=== PATIENT | male | born 2000 | race Caucasian/White ===

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

== ENCOUNTER 2021-02-26 08:12 | Inpatient (IN) | payer BC, OTHER ==
[~2021-02-26] VITALS: Ht 180.3 cm; Wt 84.5 kg
[~2021-02-26 08:12] MED LIST changes: -DOXY100C PO; +DOXY100C3 PO
[2021-02-26 08:36] LABS: BASO # 0.1 10^3/uL (0.0-0.2); BASO % 0.4 % (0.0-1.0); EOS # 0.3 10^3/uL (0.0-0.5); EOS % 1.7 % (0.0-3.0); HEMATOCRIT 45.9 % (42.0-52.0); HEMOGLOBIN 15.4 g/dl (13.5-17.5); LYMPH # 0.7 10^3/uL (1.5-5.0); LYMPH % 3.7 % (24.0-44.0); MEAN CORPUSCULAR HGB CONC 33.6 g/dl (32.0-36.5); MEAN CORPUSCULAR VOLUME 89.5 fl (80.0-96.0); MONO # 0.9 10^3/uL (0.0-0.8); MONO % 4.7 % (2.0-8.0); NEUTROPHILS # 16.7 10^3/uL (1.5-8.5); PLATELET COUNT, AUTOMATED 411 10^3/uL (150-450); RED BLOOD COUNT 5.13 10^6/uL (4.30-6.10); WHITE BLOOD COUNT 18.7 10^3/uL (4.0-10.0)
[2021-02-26 09:05] LABS: ALT/SGPT 32 U/L (12-78); BILIRUBIN,DIRECT 0.2 MG/DL (0.0-0.2); BILIRUBIN,TOTAL 0.6 MG/DL (0.2-1.0); BLOOD UREA NITROGEN 16 MG/DL (7-18); CALCIUM LEVEL 8.8 MG/DL (8.5-10.1); CARBON DIOXIDE LEVEL 25 MEQ/L (21-32); CHLORIDE LEVEL 110 MEQ/L (98-107); CREATININE FOR GFR 0.74 MG/DL (0.70-1.30); GLOMERULAR FILTRATION RATE > 60.0 (>60); GLUCOSE, FASTING 116 MG/DL (70-100); LIPASE 604 U/L (73-393); POTASSIUM SERUM 4.2 MEQ/L (3.5-5.1); SODIUM LEVEL 142 MEQ/L (136-145); TOTAL PROTEIN 7.1 GM/DL (6.4-8.2)
[2021-02-26] MEDS ORDERED: ONDANSETRON 4MG/2ML VIAL IV ONE (09:40)
[2021-02-26] MEDS ORDERED: NS 1,000 ML IV ONE (09:40)
[2021-02-26] MEDS ORDERED: ISOVUE-370 76% 100ML VIAL As Ordered ONE (09:46)
--- NOTE | 2021-02-26 10:14 | REP ---
INDICATION: vomiting diarrhea left sided pain. COMPARISON: Abdomen/pelvis CT dated 08/29/2013. TECHNIQUE: Abdomen/pelvis CT with IV contrast, without bowel contrast. FINDINGS: The visualized lung acevedo are unremarkable. The hepatic parenchyma, gallbladder, pancreas and spleen are normal size and unremarkable. The adrenals and kidneys are unremarkable. The abdominal aorta is unremarkable. There is no periaortic adenopathy or mass. The small bowel is mildly dilated and fluid-filled. There is wall thickening of a proximal small bowel loops. This may represent a enteritis. There is wall thickening of the transverse colon and descending colon, nonspecific. This could represent artifact from peristalsis or infectious versus inflammatory colitis. There is no ascites. No pneumoperitoneum. Pelvis: There is no pelvic ascites or adenopathy. The bladder is incompletely distended but otherwise unremarkable. IMPRESSION: The small bowel is mildly distended and fluid-filled. Proximal small bowel loops demonstrate wall thickening. This may represent enteritis. There is wall thickening of the transverse colon and descending colon, nonspecific, peristalsis versus inflammatory or infectious colitis. No ascites or adenopathy. No pneumoperitoneum. <Electronically signed by Jeremiah Roland > 02/26/21 1011
[2021-02-26] MEDS ORDERED: NS 1,000 ML IV SCH (13:15)
[2021-02-26] MEDS ORDERED: ACETAMINOPHEN TAB 650MG DOSE (2X325MG) PO PRN (14:10)
[2021-02-26] MEDS ORDERED: HOME MED LIST COMPLETE! XX SCH (14:15)
[2021-02-26 14:39] LABS: RSV AMPLIFICATION NEGATIVE (NEGATIVE)
[2021-02-26] MEDS ORDERED: ONDANSETRON 4MG/2ML VIAL IV PRN (15:00)
--- NOTE | 2021-02-26 15:21 | HPEPDOC ---
General Date of Admission Feb 26, 2021 at 08:13 Date of Service: Feb 26, 2021 Chief Complaint The patient is a 21-year-old male admitted with a reason for visit of Cdiff, N/V/D, Norovirus. 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 Yesterday he was in good health. Denies any recent travel, any sick contacts, or any recent hospitalizations. He denies eating anything different. He did take amoxicillin about 1 to 2 weeks ago or upper respiratory symptoms. 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 In a span of 2 hours, he had 4 to 5 episodes of vomiting. He also had 3 episodes of watery diarrhea. He was not able to keep food down, and he came to the ED for evaluation. GI panel returned positive for C.diff, enteropathogenic E.coli, and norovirus. Otherwise, vital signs were stable. Patient did not have fever or tachycardia. On examination, patient was not in any distress. Denied a ny abdominal pain. Denied any fever, dyspnea, chest pain, or dysuria. Otherwise, patient had elevated lipase of 604 which is less than 3x the upper limit of normal. There is not radiological evidence of acute pancreatitis and no abdominal pain or tenderness. He does not have acute pancreatitis, but will monitor for symptoms while here. Patient will be placed in observation for C.diff and enteropathic E.coil diarrhea. Home Medications No Active Prescriptions or Reported Meds Allergies Coded Allergies: No Known Allergies (Unverified , 02/25/17) Past Medical History Medical History 1. Asthma 2. Allergic rhinitis Surgical History 1. Pernial bridge 2014 Family History Father: Alive with high blood pressure and hyperlipidemia Mother: Alive with fibromyalgia and hypertension Social History * Smoker: current smoker Alcohol: occationally Drugs: marijuana A-FIB/CHADSVASC A-FIB History Current/History of A-Fib/PAF?: No Review of Systems Constitutional: Denies: Chills, Fever Eyes: Denies: Vision change ENT: Reports: Sore Throat (from vomiting) Skin: Reports: Rash (From poison karen. Located on hands, forearms, gluteals, and inner thighs) Pulmonary: Denies: Dyspnea, Cough Cardiovascular: Denies: Chest Pain Gastrointestinal: Reports: Nausea, Vomiting, Diarrhea; Denies: Abdominal Pain Genitourinary: Denies: Dysuria Hematologic: Denies: Bruising Neurological: Denies: Numbness Psych: Denies: Anxiety, Depression Physical Examination General Exam: Positive: Alert, Cooperative Eye Exam: Positive: EOMI; Negative: Sclera icteric ENT Exam: Positive: Atraumatic Neck Exam: Positive: Supple Chest Exam: Positive: Clear to auscultation; Negative: Rales, Rhonchi, Wheezing Heart Exam: Positive: Rate Normal, Regular Rhythm Abdomen Exam: Positive: Normal bowel sounds, Soft; Negative: Tenderness Extremity Exam: Negative: Edema Neuro Exam: Positive: Normal Speech, Cranial Nerves 3-12 NL Psych Exam: Positive: Mental status NL, Mood NL Vital Signs Vital Signs Date Time Temp Pulse Resp B/P (MAP) Pulse Ox O2 Delivery O2 Flow Rate FiO2 02/26/21 08:21 96.7 68 18 134/60 (84) 98 Room Air Laboratory Data Labs 24H Laboratory Tests 2 02/26/21 08:25: Immature Granulocyte % (Auto) 0.5, Neutrophils (%) (Auto) 89.0H, Lymphocytes (%) (Auto) 3.7L, Monocytes (%) (Auto) 4.7, Eosinophils (%) (Auto) 1.7, Basophils (%) (Auto) 0.4, Neutrophils # (Auto) 16.7H, Lymphocytes # (Auto) 0.7L, Monocytes # (Auto) 0.9H, Eosinophils # (Auto) 0.3, Basophils # (Auto) 0.1, Nucleated Red Blood Cells % (auto) 0.0, Anion Gap 7L, Glomerular Filtration Rate > 60.0, Calcium Level 8.8, Total Bilirubin 0.6, Direct Bilirubin 0.2, Aspartate Amino Transf (AST/SGOT) 19, Alanine Aminotransferase (ALT/SGPT) 32, Alkaline Phosphatase 46, Total Protein 7.1, Albumin 4.0, Albumin/Globulin Ratio 1.3, Lipase 604H 02/26/21 13:39: Coronavirus (COVID-19)(PCR) NEGATIVE, Influenza Type A (RT-PCR) NEGATIVE, Influenza Type B (RT-PCR) NEGATIVE, Respiratory Syncytial Virus (PCR) NEGATIVE CBC/BMP Laboratory Tests 02/26/21 08:25 Microbiology Microbiology 02/26/21 Gastrointestinal Tract Panel (PCR) - Final, Complete Clostridium Difficile A/B Enteropathogenic E.coli Norovirus Assessment/Plan 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 This is due to C.diff, enteropathic E.coli, and norovirus. Will keep patient on clear liquid diet and add Protonix and PRN Zofran. Otherwise, will treat enteropathic E.coli with 3 days of azithromycin and treat C.diff with PO vancomycin. Patient will be put on IVF and monitor lipase. Plan / VTE VTE Prophylaxis Ordered?: Yes Plan Plan 1. C.diff diarrhea -Most likely triggered from amoxicillin usage -Contact isolation -PO vancomycin for 10 days -IVF and supportive care 2. Enteropathic E.coli diarrhea -Azithromycin for 3 days 3. Norovirus N/V/D -Most likely causing nausea/vomiting/diarrhea -Supportive care and IVF 4. Elevated lipase -No abdominal pain, no signs of acute pancreatitis on imaging -Lipase is not 3x upper limit of normal -Will give IVF and recheck lipase 5. DVT ppx -Lovenox Disposition: Pending tolerance of solid food and improvement in diarrhea. ESTEVAN STORM DO Feb 26, 2021 15:21
[2021-02-26] MEDS: AZITHROMYCIN INJ 500 MG, VIAL MATE ADAPTER 1 EACH in NS 250 ML IV SCH (16:43)
[2021-02-26] MEDS: NS 1,000 ML IV SCH (16:43)
[2021-02-26 17:32] VITALS: BP 124/62
[2021-02-26] MEDS: NICOTINE 21MG/24HR 1 EA TRANSDERMAL TD SCH (17:40)
[2021-02-26] MEDS: VANCOMYCIN ORAL SOL 250MG/5ML ORAL SYRINGE PO SCH (18:00)
[2021-02-26] MEDS ORDERED: PANTOPRAZOLE 40MG TAB (PROTONIX) PO SCH (21:00)
[2021-02-26 22:00] VITALS: BP 123/74
[2021-02-27] MEDS: VANCOMYCIN ORAL SOL 250MG/5ML ORAL SYRINGE PO SCH ×4 (00:06→18:29)
[2021-02-27] MEDS: NS 1,000 ML IV SCH ×3 (01:25→16:32)
[2021-02-27 06:00] VITALS: BP 108/70
[2021-02-27 06:16] LABS: HEMATOCRIT 39.1 % (42.0-52.0); MEAN CORPUSCULAR HGB CONC 33.2 g/dl (32.0-36.5); MEAN CORPUSCULAR VOLUME 90.3 fl (80.0-96.0); RED BLOOD COUNT 4.33 10^6/uL (4.30-6.10); WHITE BLOOD COUNT 7.6 10^3/uL (4.0-10.0)
[2021-02-27 06:17] LABS: PLATELET COUNT, AUTOMATED 287 10^3/uL (150-450)
[2021-02-27 06:33] LABS: BLOOD UREA NITROGEN 9 MG/DL (7-18); C REACTIVE PROTEIN QUANTITATIV 4.18 MG/DL (0.00-0.30); CALCIUM LEVEL 7.6 MG/DL (8.5-10.1); CARBON DIOXIDE LEVEL 27 MEQ/L (21-32); CHLORIDE LEVEL 110 MEQ/L (98-107); CREATININE FOR GFR 0.83 MG/DL (0.70-1.30); GLOMERULAR FILTRATION RATE > 60.0 (>60); GLUCOSE, FASTING 99 MG/DL (70-100); POTASSIUM SERUM 3.7 MEQ/L (3.5-5.1); SODIUM LEVEL 140 MEQ/L (136-145)
[2021-02-27 06:39] LABS: ERYTHROCYTE SEDIMENTATION RATE 4 mm/hr (0-15)
[2021-02-27 07:26] LABS: LIPASE 103 U/L (73-393)
[2021-02-27] MEDS: NICOTINE 21MG/24HR 1 EA TRANSDERMAL TD SCH (08:57)
[2021-02-27] MEDS: ENOXAPARIN 40MG/0.4ML SYRINGE (J1650 PER 10MG) SC SCH (09:00)
--- NOTE | 2021-02-27 13:31 | IPNPDOC ---
Subjective Date Seen The patient was seen on 02/27/21. 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 Yesterday, he continue to have 3 more liquid diarrhea. This morning, he was feeling okay. Denies chest pain or dyspnea. He was able to tolerate his clear liquid diet. Will advance to solid diet. 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 This is due to C.diff, enteropathic E.coli, and norovirus. Will advance diet form clear liquids to solids. Otherwise, will treat enteropathic E.coli with 3 days of azithromycin and treat C.diff with PO vancomycin. Plan/VTE VTE Prophylaxis Ordered?: Yes Plan 1. C.diff diarrhea -Most likely triggered from amoxicillin usage -Contact isolation -PO vancomycin for 10 days -Vancomycin day 2 -IVF and supportive care 2. Enteropathic E.coli diarrhea -Azithromycin for 3 days -Azithromycin day 2 3. Norovirus N/V/D -Most likely causing nausea/vomiting -Supportive care and IVF 4. Elevated lipase -No abdominal pain, no signs of acute pancreatitis on imaging -Lipase is not 3x upper limit of normal -Will give IVF and recheck lipase -Resolved 5. DVT ppx -Lovenox Disposition: Pending tolerance of solid food and improvement in diarrhea. VS, I&O, 24H, Fishbone Vital Signs/I&O Vital Signs Date Time Temp Pulse Resp B/P (MAP) Pulse Ox O2 Delivery O2 Flow Rate FiO2 02/27/21 06:00 97.2 97 24 108/70 (83) 98 Room Air I&O- Last 24 Hours up to 6 AM 02/27/21 05:59 Intake Total 2690 ml Balance 2690 ml Laboratory Data 24H LABS Laboratory Tests 2 02/26/21 13:39: Coronavirus (COVID-19)(PCR) NEGATIVE, Influenza Type A (RT-PCR) NEGATIVE, Influenza Type B (RT-PCR) NEGATIVE, Respiratory Syncytial Virus (PCR) NEGATIVE 02/27/21 05:49: Nucleated Red Blood Cells % (auto) 0.0, Erythrocyte Sedimentation Rate 4, Anion Gap 3L, Glomerular Filtration Rate > 60.0, Calcium Level 7.6L, C-Reactive Protein, Quantitative 4.18H, Lipase 103 CBC/BMP Laboratory Tests 02/27/21 05:49 Microbiology Microbiology 02/26/21 Gastrointestinal Tract Panel (PCR) - Final, Complete Clostridium Difficile A/B Enteropathogenic E.coli Norovirus ESTEVAN STORM DO Feb 27, 2021 13:31
[2021-02-27 14:00] VITALS: BP 106/90
[2021-02-27] MEDS: AZITHROMYCIN INJ 500 MG, VIAL MATE ADAPTER 1 EACH in NS 250 ML IV SCH (16:32)
[2021-02-27 22:00] VITALS: BP 150/82
[2021-02-28] MEDS: VANCOMYCIN ORAL SOL 250MG/5ML ORAL SYRINGE PO SCH ×2 (00:08→05:44)
[2021-02-28] MEDS: NS 1,000 ML IV SCH ×2 (04:19→08:45)
[2021-02-28 06:00] VITALS: BP 126/56
[2021-02-28 06:36] LABS: HEMATOCRIT 39.1 % (42.0-52.0); HEMOGLOBIN 12.7 g/dl (13.5-17.5); MEAN CORPUSCULAR HEMOGLOBIN 29.7 pg (27.0-33.0); MEAN CORPUSCULAR HGB CONC 32.5 g/dl (32.0-36.5); MEAN CORPUSCULAR VOLUME 91.4 fl (80.0-96.0); PLATELET COUNT, AUTOMATED 300 10^3/uL (150-450); RED BLOOD COUNT 4.28 10^6/uL (4.30-6.10); WHITE BLOOD COUNT 6.7 10^3/uL (4.0-10.0)
[2021-02-28 06:58] LABS: BLOOD UREA NITROGEN 7 MG/DL (7-18); C REACTIVE PROTEIN QUANTITATIV 2.18 MG/DL (0.00-0.30); CALCIUM LEVEL 8.6 MG/DL (8.5-10.1); CARBON DIOXIDE LEVEL 28 MEQ/L (21-32); CHLORIDE LEVEL 110 MEQ/L (98-107); CREATININE FOR GFR 0.72 MG/DL (0.70-1.30); GLOMERULAR FILTRATION RATE > 60.0 (>60); GLUCOSE, FASTING 86 MG/DL (70-100); SODIUM LEVEL 141 MEQ/L (136-145)
[2021-02-28 07:13] LABS: ERYTHROCYTE SEDIMENTATION RATE 5 mm/hr (0-15)
[2021-02-28] MEDS: NICOTINE 21MG/24HR 1 EA TRANSDERMAL TD SCH (09:00)
[2021-02-28] MEDS: ENOXAPARIN 40MG/0.4ML SYRINGE (J1650 PER 10MG) SC SCH (09:00)
[2021-02-28] MEDS ORDERED: VANC125C3 PO (09:24)
[2021-02-28] MEDS ORDERED: AZITHROMYCIN INJ 500 MG, VIAL MATE ADAPTER 1 EACH in NS 250 ML IV ONE (09:25)
--- NOTE | 2021-02-28 22:34 | DS.PDOC ---
Discharge Summary General Date of Admission Feb 26, 2021 Date of Discharge Feb 28, 2021 Discharge Summary PROCEDURES PERFORMED DURING STAY: None ADMITTING DIAGNOSES: 1. C. diff diarrhea 2. Enteropathic E.coli diarrhea 3. Norovirus infection 4. Elevated lipase DISCHARGE DIAGNOSES: 1. C. diff diarrhea 2. Enteropathic E.coli diarrhea 3. Norovirus infection 4. Elevated lipase COMPLICATIONS/CHIEF COMPLAINT: Cdiff, N/V/D, Norovirus. 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 Yesterday he was in good health. Denies any recent travel, any sick contacts, or any recent hospitalizations. He denies eating anything different. He did take amoxicillin about 1 to 2 weeks ago or upper respiratory symptoms. 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 In a span of 2 hours, he had 4 to 5 episodes of vomiting. He also had 3 episodes of watery diarrhea. He was not able to keep food down, and he came to the ED for evaluation. GI panel returned positive for C.diff, enteropathogenic E.coli, and norovirus. Otherwise, vital signs were stable. Patient did not have fever or tachycardia. On examination, patient was not in any distress. Denied any abdominal pain. Denied any fever, dyspnea, chest pain, or dysuria. Otherwise, patient had elevated lipase of 604 which is less than 3x the upper limit of normal. There is not radiological evidence of acute pancreatitis and no abdominal pain or tenderness. He does not have acute pancreatitis, but will monitor for symptoms while here. Patient will be placed i n observation for C.diff and enteropathic E.coil diarrhea. HOSPITAL COURSE: Patient was put on a clear liquid diet due to his nausea and vomiting which was most likely from the norovirus. C. diff was treated with PO vancomycin and the Enteropathic E.coli was treated with azithromycin. He did well with the clear liquid diet, but it took an extra day before his diarrhea started to become solid. Today, he feels well. Denies nausea, vomiting, and abdominal pain. He was given his last dose of azithromycin inpatient and was discharged home. DISCHARGE MEDICATIONS: Please see below. ALLERGIES: Please see below. PHYSICAL EXAMINATION ON DISCHARGE: VITAL SIGNS: Please see below. GENERAL: Comfortable, in no apparent distress HEENT: Head normocephalic, atraumatic NECK: Supple CARDIOVASCULAR EXAMINATION: Regular rate and rhythm RESPIRATORY EXAMINATION: Lungs clear to auscultation bilaterally ABDOMINAL EXAMINATION: Soft, non-tender, normal bowel sounds EXTREMITIES: No pitting edema bilaterally NEUROLOGICAL EXAMINATION: CN 3-12 grossly intact PSYCHIATRIC EXAMINATION: Normal mood and affect LABORATORY DATA: Please see below. IMAGING: Radiologist interpretation CT abd/pelvis with IV contrast only The small bowel is mildly distended and fluid-filled. Proximal small bowel loops demonstrate wall thickening. This may represent enteritis. There is wall thickening of the transverse colon and descending colon, nonspecific, peristalsis versus inflammatory or infectious colitis. No ascites or adenopathy. No pneumoperitoneum. PROGNOSIS: Good ACTIVITY: As tolerated. DIET: As tolerated DISCHARGE PLAN: Home DISPOSITION: 01 Home, Self-Care. DISCHARGE INSTRUCTIONS: 1. Follow up with PCP in a week 2. Take PO vancomycin to completion DISCHARGE CONDITION: Stable. Total time spent on discharge planning, discharge summary, and medication reconciliation: 35 minutes. Vital Signs/I&Os Vital Signs Date Time Temp Pulse Resp B/P (MAP) Pulse Ox O2 Delivery O2 Flow Rate FiO2 02/28/21 06:00 97.6 65 20 126/56 (79) 98 Room Air I&O- Last 24 Hours up to 6 AM 02/28/21 06:00 Intake Total 3995 ml Balance 3995 ml Laboratory Data Labs 24H Laboratory Tests 2 02/28/21 06:01: Nucleated Red Blood Cells % (auto) 0.0, Erythrocyte Sedimentation Rate 5, Anion Gap 3L, Glomerular Filtration Rate > 60.0, Calcium Level 8.6, C-Reactive Protein, Quantitative 2.18H CBC/BMP Laboratory Tests 02/28/21 06:01 Microbiology Microbiology 02/26/21 Gastrointestinal Tract Panel (PCR) - Final, Complete Clostridium Difficile A/B Enteropathogenic E.coli Norovirus Discharge Medications Scheduled Vancomycin Hcl (Vancomycin HCl) 125 Mg Capsule, 125 MG PO QID Allergies Coded Allergies: No Known Allergies (Unverified , 02/25/17) ESTEVAN STORM DO Feb 28, 2021 22:34
== END 2021-02-28 11:44 | disposition home or self-care (01) | DRG 248 ==
LOC: EDBD 08:12 → EDSEX 08:12 → M ED 08:12 → M ED INP 08:13 → ENRESERVTM 14:55 → ENRESERVDT 14:55 → M MSPAV 16:56 → OBSVTOIN 02-27 09:02
PROVIDERS: ADMIT Internal Medicine; ATTEND Internal Medicine
DX: A04.72 Enterocolitis due to Clostridium difficile, not specified as recurrent (principal); F17.200 Nicotine dependence, unspecified, uncomplicated; J45.909 Unspecified asthma, uncomplicated; A04.4 Other intestinal Escherichia coli infections

== ENCOUNTER → 2021-04-28 | Outpatient (REF) | payer BC ==
[~2021-04-28] MED LIST changes: +VANC125C3 PO
== END ==
LOC: M LAB REF 21:16
PROVIDERS: ATTEND Physician Assistant
DX: J02.9 Acute pharyngitis, unspecified (principal)

== ENCOUNTER → 2023-05-02 | Outpatient (REF) | payer BC | LOC: M SFHCLERA 17:05 | PROVIDERS: ATTEND Physician Assistant | DX: J22 Unspecified acute lower respiratory infection (principal) ==

== ENCOUNTER → 2023-09-07 | Outpatient (CLI) | payer BC ==
[2023-09-07 12:25] LABS: BASO # 0.1 10^3/uL (0.0-0.2); BASO % 1.3 % (0.0-1.0); EOS # 0.1 10^3/uL (0.0-0.5); EOS % 1.7 % (0.0-3.0); HEMATOCRIT 40.6 % (42.0-52.0); HEMOGLOBIN 13.7 g/dl (13.5-17.5); LYMPH % 23.8 % (24.0-44.0); MEAN CORPUSCULAR HGB CONC 33.7 g/dl (32.0-36.5); MONO # 0.6 10^3/uL (0.0-0.8); MONO % 7.4 % (2.0-8.0); NEUTROPHILS # 5.4 10^3/uL (1.5-8.5); NEUTROPHILS % 65.4 % (36.0-66.0); PLATELET COUNT, AUTOMATED 411 10^3/uL (150-450); RED BLOOD COUNT 4.56 10^6/uL (4.30-6.10); WHITE BLOOD COUNT 8.2 10^3/uL (4.0-10.0)
[2023-09-07 12:56] LABS: ALBUMIN 4.4 G/DL (3.2-5.2); ALKALINE PHOSPHATASE 47 U/L (46-116); ALT/SGPT 17 U/L (7.0-40); AST/SGOT 12 U/L (<34); BILIRUBIN,TOTAL 0.6 MG/DL (0.3-1.2); BLOOD UREA NITROGEN 12 MG/DL (9-23); CALCIUM LEVEL 9.8 MG/DL (8.5-10.1); CARBON DIOXIDE LEVEL 30 MMOL/L (20-31); CHLORIDE LEVEL 105 MMOL/L (98-107); CHOLESTEROL LEVEL 150 MG/DL (<200); CHOLESTEROL RISK RATIO 2.92 (<5); CREATININE FOR GFR 0.89 MG/DL (0.70-1.30); GLOMERULAR FILTRATION RATE > 60.0 (>60); GLUCOSE, FASTING 96 MG/DL (60-100); HDL CHOLESTEROL 51.3 MG/DL (>40); LDL CHOLESTEROL 88.7 MG/DL (<100); NON-HDL-C 98.7 MG/DL; POTASSIUM SERUM 4.7 MMOL/L (3.5-5.1); SODIUM LEVEL 138 MMOL/L (136-145); TOTAL PROTEIN 7.2 G/DL (5.7-8.2); TRIGLYCERIDES LEVEL 50 MG/DL (<150)
[2023-09-07 12:57] LABS: THYROID STIMULATING HORMONE 1.298 uIU/ML (0.55-4.78); TOTAL 25(OH) VITAMIN D 9.5 NG/ML (20.0-100.0)
[2023-09-07 12:58] LABS: FREE T4 1.07 NG/DL (0.89-1.76)
== END ==
LOC: M LAB 11:39
PROVIDERS: ATTEND Physician Assistant
DX: Z00.00 Encounter for general adult medical examination without abnormal findings (principal)

== ENCOUNTER 2024-04-15 15:30 | Observation (INO) | payer BC, SELFPAY ==
[~2024-04-15] VITALS: Ht 182.9 cm; Wt 92.0 kg
[2024-04-15] MEDS: ONDANSETRON 4MG 2ML VIAL IV ONE ×2 (16:29→18:17)
[2024-04-15] MEDS: fentaNYL 100 MCG/2 ML INJECTION IV ONE ×2 (16:29→17:18)
[2024-04-15 16:42] LABS: BASO # 0.1 10^3/uL (0.0-0.2); BASO % 0.8 % (0.0-1.0); EOS % 0.1 % (0.0-3.0); HEMATOCRIT 42.4 % (42.0-52.0); HEMOGLOBIN 14.3 g/dl (13.5-17.5); LYMPH # 1.9 10^3/uL (1.5-5.0); LYMPH % 12.2 % (24.0-44.0); MEAN CORPUSCULAR HEMOGLOBIN 29.7 pg (27.0-33.0); MEAN CORPUSCULAR HGB CONC 33.7 g/dl (32.0-36.5); MONO # 0.9 10^3/uL (0.0-0.8); MONO % 5.8 % (2.0-8.0); NEUTROPHILS # 12.4 10^3/uL (1.5-8.5); NEUTROPHILS % 80.5 % (36.0-66.0); PLATELET COUNT, AUTOMATED 425 10^3/uL (150-450); RED BLOOD COUNT 4.82 10^6/uL (4.30-6.10); WHITE BLOOD COUNT 15.4 10^3/uL (4.0-10.0)
[2024-04-15 16:48] LABS: BLOOD UREA NITROGEN 13 MG/DL (9-23); CALCIUM LEVEL 10.3 MG/DL (8.5-10.1); CARBON DIOXIDE LEVEL 26 MMOL/L (20-31); CHLORIDE LEVEL 106 MMOL/L (98-107); CREATININE FOR GFR 0.89 MG/DL (0.70-1.30); GLOMERULAR FILTRATION RATE > 60.0 (>60); GLUCOSE, FASTING 131 MG/DL (60-100); POTASSIUM SERUM 4.1 MMOL/L (3.5-5.1); SODIUM LEVEL 140 MMOL/L (136-145)
[2024-04-15] MEDS ORDERED: HYDR50TA70 PO (17:58)
[2024-04-15] MEDS ORDERED: LAMO100T3 PO (17:58)
[2024-04-15] MEDS: MORPHINE 4 MG/ML 1ML VIAL IV ONE (18:04)
[2024-04-15] MEDS ORDERED: HOME MED LIST COMPLETE! XX SCH (18:40)
[2024-04-15 19:01] LABS: ALBUMIN 4.5 G/DL (3.2-5.2); ALKALINE PHOSPHATASE 47 U/L (46-116); ALT/SGPT 23 U/L (7.0-40); AST/SGOT 17 U/L (<34); BILIRUBIN,DIRECT 0.1 MG/DL (<0.4); BILIRUBIN,TOTAL 0.3 MG/DL (0.3-1.2); MAGNESIUM LEVEL 1.6 MG/DL (1.8-2.4); TOTAL PROTEIN 7.7 G/DL (5.7-8.2)
[2024-04-15] MEDS ORDERED: MOM 30ML SUSPENSION UDC PO PRN (19:05)
[2024-04-15] MEDS ORDERED: MAALOX 30 ML SUSP *UDC PO PRN (19:05)
[2024-04-15] MEDS ORDERED: ALBUTEROL 90 MCG/ACT 8GM HFA INHALER INH PRN (19:05)
[2024-04-15] MEDS: NICOTINE 21MG/24HR 1 EA TRANSDERMAL TD ONE (19:34)
[2024-04-15] MEDS: ACETAMINOPHEN *IV* 1,000 MG in IV 1 EA IV ONE (19:35)
[2024-04-15] MEDS: METHOCARBAMOL 1,000 MG/10 ML VIAL IV ONE (19:35)
[2024-04-15 22:00] VITALS: BP 137/78; TEMP 99.2; O2SAT 96
[2024-04-15] MEDS: DOCUSATE SODIUM 100MG CAPSULE PO SCH (22:00)
[2024-04-15] MEDS: PERCOCET 5MG/325MG TAB PO PRN (22:02)
[2024-04-15] MEDS ORDERED: OMEP-173 PO (22:51)
[2024-04-15] MEDS ORDERED: ACETAMINOPHEN TAB 650MG DOSE (2X325MG) PO PRN (23:00)
[2024-04-16] VITALS (10 sets, daily range): BP systolic 123–149; BP diastolic 58–93; TEMP 97.7–99.1; O2SAT 96–99
[2024-04-16 07:06] LABS: HEMATOCRIT 39.1 % (42.0-52.0); HEMOGLOBIN 13.2 g/dl (13.5-17.5); MEAN CORPUSCULAR HGB CONC 33.8 g/dl (32.0-36.5); MEAN CORPUSCULAR VOLUME 88.9 fl (80.0-96.0)
[2024-04-16 07:10] LABS: PLATELET COUNT, AUTOMATED 306 10^3/uL (150-450)
[2024-04-16 07:34] LABS: ALKALINE PHOSPHATASE 44 U/L (46-116); ALT/SGPT 21 U/L (7.0-40); AST/SGOT 15 U/L (<34); BLOOD UREA NITROGEN 10 MG/DL (9-23); CALCIUM LEVEL 9.4 MG/DL (8.5-10.1); CARBON DIOXIDE LEVEL 29 MMOL/L (20-31); CHLORIDE LEVEL 103 MMOL/L (98-107); CREATININE FOR GFR 0.81 MG/DL (0.70-1.30); GLOMERULAR FILTRATION RATE > 60.0 (>60); GLUCOSE, FASTING 106 MG/DL (60-100); MAGNESIUM LEVEL 1.7 MG/DL (1.8-2.4); POTASSIUM SERUM 3.9 MMOL/L (3.5-5.1); SODIUM LEVEL 138 MMOL/L (136-145); TOTAL PROTEIN 6.8 G/DL (5.7-8.2)
[2024-04-16] MEDS: lamoTRIgine 100MG TAB PO SCH (09:07)
[2024-04-16] MEDS: PERCOCET 5MG/325MG TAB PO PRN (10:40)
[2024-04-16] MEDS: HYDROMORPHONE HCL 0.5 MG/ 0.5 ML SYRINGE IV ONE (12:47)
[2024-04-16] MEDS: NS 1,000 ML IV ONE (12:48)
[2024-04-16] MEDS: ceFAZolin 2 GM/D5W 50 ML IV BAG As Ordered ONE (14:49)
[2024-04-16] MEDS ORDERED: HYDROmorphone HCL 2MG/ML 1ML VIAL As Ordered ONE (15:03)
[2024-04-16] MEDS ORDERED: MIDAZOLAM INJ 2MG/2ML VIAL As Ordered ONE (15:33)
[2024-04-16] MEDS ORDERED: propofoL 200 MG/20 ML VIAL As Ordered ONE (15:33)
[2024-04-16] MEDS ORDERED: LIDOCAINE 2% 100MG/5ML SDV (FOR ANES.) As Ordered ONE (15:33)
[2024-04-16] MEDS ORDERED: ROCURONIUM BROMIDE 50MG/5ML VIAL As Ordered ONE (15:33)
[2024-04-16] MEDS ORDERED: ONDANSETRON 4MG 2ML VIAL As Ordered ONE (15:33)
[2024-04-16] MEDS ORDERED: fentaNYL 100 MCG/2 ML INJECTION As Ordered ONE (15:33)
[2024-04-16] MEDS ORDERED: SUGAMMADEX SODIUM 500 MG/5 ML VIAL (BRIDION) As Ordered ONE (15:33)
[2024-04-16] MEDS ORDERED: KETOROLAC 60MG 2ML VIAL As Ordered ONE (17:09)
[2024-04-16] MEDS ORDERED: LR 1,000 ML IV SCH (17:35)
[2024-04-16] MEDS: fentaNYL 100 MCG/2 ML INJECTION IV PRN (18:00)
[2024-04-16] MEDS: ONDANSETRON 4MG 2ML VIAL IV PRN (18:00)
[2024-04-16] MEDS: HYDROMORPHONE HCL 0.5 MG/ 0.5 ML SYRINGE IV PRN (18:06)
[2024-04-16] MEDS: METOCLOPRAMIDE INJ 10MG/2ML VIAL IV PRN (18:17)
[2024-04-16] MEDS: oxyCODONE 5MG TAB PO PRN (18:30)
[2024-04-16] MEDS: KETOROLAC 30 MG/ML 1ML VIAL IV ONE (19:34)
[2024-04-16] MEDS: ACETAMINOPHEN *IV* 1,000 MG in IV 1 EA IV ONE (19:34)
[2024-04-16] MEDS: NS 1,000 ML IV SCH (20:06)
[2024-04-16] MEDS: NICOTINE 21MG/24HR 1 EA TRANSDERMAL TD PRN (20:31)
[2024-04-16] MEDS: hydrOXYzine 50 MG TAB PO PRN (23:01)
[2024-04-16] MEDS: ceFAZolin SOD 2 GM in IV 1 EA IV SCH (23:28)
[2024-04-17 04:00] VITALS: BP 110/52; TEMP 98.4; O2SAT 95
[2024-04-17] MEDS ORDERED: PERCOCET PO (07:16)
[2024-04-17] MEDS ORDERED: NICO21PAT TD (07:17)
[2024-04-17] MEDS: KETOROLAC 30 MG/ML 1ML VIAL IV ONE (07:48)
[2024-04-17 07:54] VITALS: BP 117/59; TEMP 98.7; O2SAT 97
[2024-04-17 09:02] LABS: BLOOD UREA NITROGEN 8 MG/DL (9-23); CALCIUM LEVEL 8.1 MG/DL (8.5-10.1); CARBON DIOXIDE LEVEL 29 MMOL/L (20-31); CHLORIDE LEVEL 105 MMOL/L (98-107); CREATININE FOR GFR 0.82 MG/DL (0.70-1.30); GLOMERULAR FILTRATION RATE > 60.0 (>60); GLUCOSE, FASTING 97 MG/DL (60-100); MAGNESIUM LEVEL 1.7 MG/DL (1.8-2.4); POTASSIUM SERUM 3.8 MMOL/L (3.5-5.1); SODIUM LEVEL 137 MMOL/L (136-145)
[2024-04-17] MEDS: MAGNESIUM OXIDE 400MG TAB (MAG-OX) PO ONE (09:48)
== END 2024-04-17 11:40 | disposition home or self-care (01) ==
LOC: M ED 15:30 → M ED INP 19:01 → INTOOBSV 19:01 → M PED 21:43
PROVIDERS: ADMIT Internal Medicine; ATTEND Internal Medicine
DX: S42.342A Displaced spiral fracture of shaft of humerus, left arm, initial encounter for closed fracture (principal); W18.39XA Other fall on same level, initial encounter; Y92.410 Unspecified street and highway as the place of occurrence of the external cause; Y93.H2 Activity, gardening and landscaping; Y99.0 Civilian activity done for income or pay; E87.8 Other disorders of electrolyte and fluid balance, not elsewhere classified; E83.42 Hypomagnesemia; J45.20 Mild intermittent asthma, uncomplicated; F32.A Depression, unspecified; F41.9 Anxiety disorder, unspecified; D72.829 Elevated white blood cell count, unspecified; R45.4 Irritability and anger; K21.9 Gastro-esophageal reflux disease without esophagitis; Z82.49 Family history of ischemic heart disease and other diseases of the circulatory system; Z82.69 Family history of other diseases of the musculoskeletal system and connective tissue; Z83.511 Family history of glaucoma; F17.290 Nicotine dependence, other tobacco product, uncomplicated; Z88.8 Allergy status to other drugs, medicaments and biological substances
CPT/HCPCS: 24515; 29105; 36415; 73060; 73070; 76000; 80048; 80053; 80076; 83735; 85025; 85027; 85730; 96365; 96375; 96376; 97165; 99284; C1713; J0131; J0665; J0690; J1100; J1171; J1885; J2250; J2405; J2765; J2800; J3010

== ENCOUNTER → 2024-04-29 | Outpatient (CLI) | payer BC ==
[~2024-04-29] MED LIST changes: +HYDR50TA70 PO; +LAMO100T3 PO; +NICO21PAT TD; +OMEP-173 PO; +PERCOCET PO
== END ==
LOC: M SOG 07:55
PROVIDERS: ATTEND Physician Assistant
DX: M79.622 Pain in left upper arm (principal); Z98.890 Other specified postprocedural states

== ENCOUNTER → 2024-05-29 | Outpatient (CLI) | payer BC | LOC: M SOG 07:59 | PROVIDERS: ATTEND Physician Assistant | DX: M79.622 Pain in left upper arm (principal) ==

== ENCOUNTER → 2024-07-22 | Outpatient (REF) | payer BC ==
[2024-07-22 19:28] LABS: ALBUMIN 4.5 G/DL (3.2-5.2); ALKALINE PHOSPHATASE 72 U/L (40-129); ALT/SGPT 18 U/L (7.0-40); AST/SGOT 18 U/L (<34); BILIRUBIN,TOTAL 0.3 MG/DL (0.3-1.2); BLOOD UREA NITROGEN 12 MG/DL (9-23); CALCIUM LEVEL 10.1 MG/DL (8.5-10.1); CARBON DIOXIDE LEVEL 28 MMOL/L (20-31); CHLORIDE LEVEL 102 MMOL/L (98-107); CREATININE FOR GFR 0.84 MG/DL (0.70-1.30); FREE T4 1.31 NG/DL (0.89-1.76); GLOMERULAR FILTRATION RATE > 60.0 (>60); GLUCOSE, FASTING 86 MG/DL (60-100); POTASSIUM SERUM 4.3 MMOL/L (3.5-5.1); SODIUM LEVEL 141 MMOL/L (136-145); TOTAL 25(OH) VITAMIN D 15.2 NG/ML (20.0-100.0)
== END ==
LOC: M SFHCPLAZ 17:18
PROVIDERS: ATTEND Internal Medicine
DX: E55.9 Vitamin D deficiency, unspecified (principal); F32.A Depression, unspecified; R53.83 Other fatigue; I44.30 Unspecified atrioventricular block

== ENCOUNTER → 2024-07-31 | Outpatient (CLI) | payer BC | LOC: M SOG 10:01 | PROVIDERS: ATTEND Orthopaedic Surgery | DX: S42.492D Other displaced fracture of lower end of left humerus, subsequent encounter for fracture with routine healing (principal); Y93.9 Activity, unspecified; Y92.9 Unspecified place or not applicable ==